=== PATIENT | male | born 1955 | race African-American/Black ===

== ENCOUNTER 2016-11-06 08:58 | Day surgery (SDC) | payer BC ==
[2016-11-06] MEDS ORDERED: D5 LR 1000 ML 1,000 ML IV ONE (09:11)
[2016-11-06] MEDS ORDERED: DIPRIVAN VIAL 20 ML ONE ×2 (10:35→10:50)
[2016-11-06 11:23] VITALS: BP 172/82
== END 2016-11-06 11:20 | disposition home or self-care (01) ==
LOC: SURG1 08:58
PROVIDERS: ATTEND Internal Medicine Gastroenterology
PROC: 0DB88ZX Excision of Small Intestine, Via Natural or Artificial Opening Endoscopic, Diagnostic (ICD-10-PCS; principal; 2016-11-06 13:15)
PROC: 0DB68ZX Excision of Stomach, Via Natural or Artificial Opening Endoscopic, Diagnostic (ICD-10-PCS; principal; 2016-11-06 13:15)
PROC: 0DJ08ZZ Inspection of Upper Intestinal Tract, Via Natural or Artificial Opening Endoscopic (ICD-10-PCS; principal; 2016-11-06 13:15)
DX: R10.13 Epigastric pain (principal); K21.9 Gastro-esophageal reflux disease without esophagitis; K25.9 Gastric ulcer, unspecified as acute or chronic, without hemorrhage or perforation; K20.8 Other esophagitis; K29.60 Other gastritis without bleeding
CPT/HCPCS: A4217; J3490; J7120